=== PATIENT | female | born 1945 | race Caucasian/White ===

== ENCOUNTER 2022-07-10 10:36 | Inpatient (IN) | payer MEDICARE, BC ==
[~2022-07-10] VITALS: Ht 152.4 cm; Wt 49.4 kg
[2022-07-10 11:07] LABS: Basophils # (auto) 0.1 10 ^3/uL (0-0.2); Basophils % (auto) 0.8 % (0.0-2.0); Eosinophils # (auto) 0.3 10 ^3/uL (0-0.8); Eosinophils % (auto) 2.7 % (0.0-7.0); Hemoglobin 12.7 g/dL (12.2-16.2); Lymphocytes # (auto) 1.8 10 ^3/uL (0.4-5.4); Lymphocytes % (auto) 15.9 % (10.0-50.0); Mean Corpuscular Hemoglobin 30.6 pg (28.0-32.0); Mean Corpuscular Hgb Conc. 33.5 g/dL (32.0-36.0); Mean Corpuscular Volume 91.4 fL (80.0-100.0); Monocytes # (auto) 1.1 10 ^3/uL (0-1.3); Monocytes % (auto) 10.1 % (0.0-12.0); Neutrophils # (auto) 7.8 10 ^3/uL (1.6-8.6); Neutrophils % (auto) 70.5 % (37.0-80.0); Nucleated Red Blood Cells % 0.1 %; Red Blood Cells 4.16 10^6/uL (4.0-5.20); Red Cell Distribution Width 13.7 % (11.8-14.3)
[2022-07-10 11:31] LABS: Albumin 3.5 g/dL (3.4-5.0)
[2022-07-10 11:35] LABS: BUN/Creatinine Ratio 10.4 (10.0-20.0); Bilirubin, Total 0.9 mg/dL (0.2-1.0); Total Protein 6.8 g/dL (6.4-8.2)
[2022-07-10 11:39] LABS: Calcium 13.9 mg/dL (8.5-10.1); Potassium 2.7 mmol/L (3.5-5.1)
[2022-07-10] MEDS ORDERED: SODIUM CHLORIDE 0.9% 1,000 ML IV ONE (12:00)
[2022-07-10] MEDS ORDERED: POTASSIUM EFFERVESENT TAB 25 MEQ PO ONE (12:00)
[2022-07-10 12:11] LABS: Magnesium 1.6 mg/dL (1.6-2.6); Phosphorus 3.1 mg/dL (2.5-4.90)
[2022-07-10] MEDS ORDERED: DEXTROSE (50%) 50ML SYRG IV PRN (15:15)
[2022-07-10] MEDS ORDERED: ZOLEDRONIC ACID 4 MG in SODIUM CHL 0.9% 100 ML IV ONE (16:30)
[2022-07-10] MEDS: POTASSIUM CHL 20 Meq TABLET PO ONE ×2 (16:39→16:53)
[2022-07-10] MEDS: ENOXAPARIN SOD 60 MG/0.6 ML SYRINGE SC SCH (16:55)
[2022-07-10] MEDS: InsuLIN REG 1unit/0.01ml Soln (100units/ml) SC SCH ×2 (16:55→21:31)
[2022-07-10] MEDS: ACCU-CHEK COMFORT CURVE STRIP VI SCH ×2 (16:55→21:31)
[2022-07-10] MEDS: POTASSIUM CHL 20MEQ/100ML 100 ML IV SCH ×2 (17:42→21:23)
[2022-07-10] MEDS: ATORVASTATIN 20 MG TAB PO SCH (21:23)
[2022-07-10 21:26] LABS: Urine Bacteria NONE SEEN /hpf (None Seen); Urine Blood Negative /uL (Negative); Urine Specific Gravity 1.007 (1.001-1.035); Urine WBC 4 /hpf (0 - 5)
[2022-07-10 21:31] LABS: Creatinine, Urine 15 mg/dL (30.0-125.0); Sodium Urine 121 mmol/L (40-220)
[2022-07-10] MEDS ORDERED: hydrALAZINE HCL 20 MG/ML VL IV PRN (22:15)
[2022-07-10 23:33] VITALS: BP 145/73
[2022-07-11 01:02] VITALS: BP 145/73
[2022-07-11] MEDS ORDERED: ATOR10TA PO (01:20)
[2022-07-11] MEDS ORDERED: DOCU100T15 PO (01:20)
[2022-07-11] MEDS ORDERED: CLOP75TA70 PO (01:20)
[2022-07-11] MEDS ORDERED: ALEN70TA74 PO (01:20)
[2022-07-11] MEDS ORDERED: COBA1000 SL (01:20)
[2022-07-11] MEDS ORDERED: CALC500C65 PO (01:20)
[2022-07-11] MEDS ORDERED: ASPI81CH74 PO (01:20)
[2022-07-11] MEDS ORDERED: AML5T PO (01:20)
[2022-07-11] MEDS ORDERED: FOLI-119 PO (01:22)
[2022-07-11] MEDS ORDERED: MEMA1TAB3 PO (01:22)
[2022-07-11] MEDS ORDERED: CHOL20007 OR (01:22)
[2022-07-11] MEDS ORDERED: QUET100T47 PO (01:22)
[2022-07-11 05:00] VITALS: BP 101/48
[2022-07-11] MEDS: ACCU-CHEK COMFORT CURVE STRIP VI SCH ×4 (06:01→21:28)
[2022-07-11] MEDS: InsuLIN REG 1unit/0.01ml Soln (100units/ml) SC SCH ×4 (06:03→21:37)
[2022-07-11] MEDS ORDERED: ENOXAPARIN SOD 40 MG/0.4 ML SYRINGE SC SCH (10:00)
[2022-07-11] MEDS ORDERED: FUROSEMIDE 20 MG/2 ML VIAL IV SCH (10:00)
[2022-07-11 11:46] LABS: Basophils # (auto) 0.1 10 ^3/uL (0-0.2); Basophils % (auto) 0.9 % (0.0-2.0); Eosinophils # (auto) 0.5 10 ^3/uL (0-0.8); Hematocrit 36.4 % (36.0-46.0); Hemoglobin 12.2 g/dL (12.2-16.2); Lymphocytes # (auto) 2.4 10 ^3/uL (0.4-5.4); Lymphocytes % (auto) 25.7 % (10.0-50.0); Mean Corpuscular Hemoglobin 30.5 pg (28.0-32.0); Mean Corpuscular Hgb Conc. 33.5 g/dL (32.0-36.0); Mean Corpuscular Volume 91.1 fL (80.0-100.0); Monocytes # (auto) 0.7 10 ^3/uL (0-1.3); Monocytes % (auto) 7.5 % (0.0-12.0); Neutrophils # (auto) 5.8 10 ^3/uL (1.6-8.6); Neutrophils % (auto) 60.9 % (37.0-80.0); Nucleated Red Blood Cells % 0.1 %; Red Cell Distribution Width 13.5 % (11.8-14.3); White Blood Cell 9.6 10^3/uL (4.4-10.8)
[2022-07-11 12:15] LABS: Albumin 3.3 g/dL (3.4-5.0); Calcium 12.5 mg/dL (8.5-10.1); Magnesium 1.5 mg/dL (1.6-2.6); Potassium 3.3 mmol/L (3.5-5.1)
[2022-07-11 12:19] LABS: BUN/Creatinine Ratio 9.8 (10.0-20.0); Bilirubin, Total 1.2 mg/dL (0.2-1.0); Phosphorus 1.6 mg/dL (2.5-4.90); Total Protein 6.4 g/dL (6.4-8.2)
[2022-07-11] MEDS ORDERED: POTASSIUM PHOSPHATE 26.4 MEQ in SODIUM CHL 0.9% 100 ML IV ONE (13:00)
[2022-07-11] MEDS: SODIUM CHLORIDE 0.9% 1,000 ML IV SCH (16:22)
[2022-07-11] MEDS: MAGNESIUM SULFATE 1GM/100ML 100 ML IV SCH ×3 (16:22→20:34)
[2022-07-11] MEDS: ENOXAPARIN SOD 60 MG/0.6 ML SYRINGE SC SCH (18:53)
[2022-07-11] MEDS ORDERED: MAGNESIUM SULFATE 1GM/100ML 100 ML IV SCH (20:30)
[2022-07-11] MEDS: ATORVASTATIN 20 MG TAB PO SCH (21:28)
[2022-07-11] MEDS ORDERED: LORazepam 2MG/ML-1ML VIAL IV PRN (21:30)
[2022-07-11] MEDS ORDERED: HALOPERIDOL LACTATE 5 MG/ML INJ VIAL IM PRN (21:30)
[2022-07-11] MEDS: MEMANTINE HCL 5 MG TAB PO SCH (21:39)
[2022-07-11 22:00] VITALS: BP 148/65
[2022-07-12] MEDS: SODIUM CHLORIDE 0.9% 1,000 ML IV SCH ×3 (04:27→22:35)
[2022-07-12 05:00] VITALS: BP 155/76
[2022-07-12] MEDS: ACCU-CHEK COMFORT CURVE STRIP VI SCH ×4 (05:46→22:21)
[2022-07-12] MEDS: InsuLIN REG 1unit/0.01ml Soln (100units/ml) SC SCH ×4 (05:52→22:00)
[2022-07-12 07:11] LABS: Basophils # (auto) 0.1 10 ^3/uL (0-0.2); Basophils % (auto) 0.6 % (0.0-2.0); Eosinophils # (auto) 0.5 10 ^3/uL (0-0.8); Eosinophils % (auto) 5.8 % (0.0-7.0); Hemoglobin 11.6 g/dL (12.2-16.2); Lymphocytes # (auto) 3.1 10 ^3/uL (0.4-5.4); Lymphocytes % (auto) 34.8 % (10.0-50.0); Mean Corpuscular Hemoglobin 31.1 pg (28.0-32.0); Mean Corpuscular Volume 91.4 fL (80.0-100.0); Monocytes # (auto) 0.9 10 ^3/uL (0-1.3); Neutrophils # (auto) 4.3 10 ^3/uL (1.6-8.6); Neutrophils % (auto) 48.8 % (37.0-80.0); Nucleated Red Blood Cells % 0.1 %; Red Blood Cells 3.72 10^6/uL (4.0-5.20); Red Cell Distribution Width 13.5 % (11.8-14.3); White Blood Cell 8.8 10^3/uL (4.4-10.8)
[2022-07-12 07:27] LABS: Calcium 10.7 mg/dL (8.5-10.1)
[2022-07-12 07:33] LABS: Albumin 2.8 g/dL (3.4-5.0); BUN/Creatinine Ratio 11.2 (10.0-20.0); Bilirubin, Total 0.8 mg/dL (0.2-1.0); Magnesium 2.5 mg/dL (1.6-2.6); Phosphorus 2.8 mg/dL (2.5-4.90); Total Protein 5.5 g/dL (6.4-8.2)
[2022-07-12 07:36] LABS: Potassium 2.9 mmol/L (3.5-5.1)
[2022-07-12] MEDS ORDERED: POTASSIUM EFFERVESENT TAB 25 MEQ PO ONE (08:15)
[2022-07-12 09:00] VITALS: BP 141/69
[2022-07-12] MEDS ORDERED: ZOLEDRONIC ACID 4 MG in SODIUM CHL 0.9% 100 ML IV ONE (09:00)
[2022-07-12] MEDS ORDERED: POTASSIUM CHL 20 Meq TABLET PO ONE (09:00)
[2022-07-12] MEDS: MEMANTINE HCL 5 MG TAB PO SCH ×2 (10:04→22:21)
[2022-07-12] MEDS ORDERED: GADOTERATE MEG 10 MMOL/20ml INJ (0.5MMOL/ml) IV ONE (12:09)
[2022-07-12 13:00] VITALS: BP 156/73
[2022-07-12 17:00] VITALS: BP 138/82
[2022-07-12] MEDS: ENOXAPARIN SOD 60 MG/0.6 ML SYRINGE SC SCH (19:28)
[2022-07-12 22:00] VITALS: BP 152/76
[2022-07-12] MEDS: ATORVASTATIN 20 MG TAB PO SCH (22:21)
[2022-07-13 05:00] VITALS: BP 133/76
[2022-07-13] MEDS: ACCU-CHEK COMFORT CURVE STRIP VI SCH ×4 (06:10→22:10)
[2022-07-13] MEDS: InsuLIN REG 1unit/0.01ml Soln (100units/ml) SC SCH ×4 (06:11→22:00)
[2022-07-13] MEDS: MEMANTINE HCL 5 MG TAB PO SCH ×2 (10:18→22:07)
[2022-07-13] MEDS ORDERED: HALOPERIDOL LACTATE 5 MG/ML INJ VIAL IM PRN (12:30)
[2022-07-13 13:00] VITALS: BP 118/78
[2022-07-13 14:02] LABS: Basophils # (auto) 0.1 10 ^3/uL (0-0.2); Basophils % (auto) 1.6 % (0.0-2.0); Eosinophils # (auto) 0.4 10 ^3/uL (0-0.8); Eosinophils % (auto) 4.8 % (0.0-7.0); Hematocrit 36.3 % (36.0-46.0); Hemoglobin 12.4 g/dL (12.2-16.2); Lymphocytes # (auto) 1.7 10 ^3/uL (0.4-5.4); Lymphocytes % (auto) 20.8 % (10.0-50.0); Mean Corpuscular Hemoglobin 31.1 pg (28.0-32.0); Mean Corpuscular Hgb Conc. 34.1 g/dL (32.0-36.0); Mean Corpuscular Volume 91.2 fL (80.0-100.0); Monocytes # (auto) 0.5 10 ^3/uL (0-1.3); Monocytes % (auto) 6.1 % (0.0-12.0); Neutrophils # (auto) 5.5 10 ^3/uL (1.6-8.6); Neutrophils % (auto) 66.7 % (37.0-80.0); Nucleated Red Blood Cells % 0.1 %; Red Blood Cells 3.98 10^6/uL (4.0-5.20); Red Cell Distribution Width 13.9 % (11.8-14.3); White Blood Cell 8.3 10^3/uL (4.4-10.8)
[2022-07-13 14:10] LABS: BUN/Creatinine Ratio 10.9 (10.0-20.0); Calcium 9.5 mg/dL (8.5-10.1); Magnesium 1.9 mg/dL (1.6-2.6); Potassium 3.3 mmol/L (3.5-5.1)
[2022-07-13 17:00] VITALS: BP 178/92
[2022-07-13] MEDS: ENOXAPARIN SOD 60 MG/0.6 ML SYRINGE SC SCH (17:51)
[2022-07-13] MEDS: SODIUM CHLORIDE 0.9% 1,000 ML IV SCH (18:18)
[2022-07-13 22:00] VITALS: BP 138/74
[2022-07-13] MEDS: ATORVASTATIN 20 MG TAB PO SCH (22:07)
[2022-07-14 05:00] VITALS: BP 113/72
[2022-07-14] MEDS: InsuLIN REG 1unit/0.01ml Soln (100units/ml) SC SCH ×4 (06:30→21:15)
[2022-07-14] MEDS: ACCU-CHEK COMFORT CURVE STRIP VI SCH ×4 (06:31→21:16)
[2022-07-14] MEDS: SODIUM CHLORIDE 0.9% 1,000 ML IV SCH ×2 (07:40→09:26)
[2022-07-14 08:00] VITALS: BP 133/89
[2022-07-14 08:36] VITALS: BP 133/89
[2022-07-14] MEDS ORDERED: POTASSIUM CHL 20 Meq TABLET PO ONE (08:45)
[2022-07-14] MEDS: MEMANTINE HCL 5 MG TAB PO SCH ×2 (09:24→21:11)
[2022-07-14] MEDS: MAGNESIUM OXIDE 400 MG TAB PO SCH (11:20)
[2022-07-14 13:00] VITALS: BP 132/84
[2022-07-14 16:41] VITALS: BP 150/80
[2022-07-14] MEDS: ENOXAPARIN SOD 60 MG/0.6 ML SYRINGE SC SCH (16:41)
[2022-07-14] MEDS: ATORVASTATIN 20 MG TAB PO SCH (21:11)
[2022-07-14 22:15] VITALS: BP 155/82
[2022-07-15 05:00] VITALS: BP 164/77
[2022-07-15] MEDS: InsuLIN REG 1unit/0.01ml Soln (100units/ml) SC SCH ×3 (07:00→16:50)
[2022-07-15] MEDS: ACCU-CHEK COMFORT CURVE STRIP VI SCH ×3 (07:37→16:51)
[2022-07-15 08:00] VITALS: BP 157/83
[2022-07-15] MEDS: SODIUM CHLORIDE 0.9% 1,000 ML IV SCH (11:10)
[2022-07-15] MEDS: MAGNESIUM OXIDE 400 MG TAB PO SCH (11:10)
[2022-07-15] MEDS: MEMANTINE HCL 5 MG TAB PO SCH (11:10)
[2022-07-15 12:30] VITALS: BP 157/83
[2022-07-15 13:57] LABS: Potassium 3.6 mmol/L (3.5-5.1)
[2022-07-15 13:59] LABS: BUN/Creatinine Ratio 10.5 (10.0-20.0)
[2022-07-15 15:09] VITALS: BP 157/83
[2022-07-15 16:54] VITALS: BP 109/61
[2022-07-16 08:06] LABS: Immunoglobulin G, Serum 763 mg/dL (586-1602)
== END 2022-07-15 17:25 | disposition hospice, home (50) | DRG 70 ==
LOC: EDBD 10:36 → ER 10:36 → TELE 15:49 → ER 22:47 → TELE-WESTW 22:47 → WEST WING 07-15 04:07
PROVIDERS: ADMIT Nurse Practitioner Family; ATTEND Internal Medicine
PROC: 4A00X4Z Measurement of Central Nervous Electrical Activity, External Approach (ICD-10-PCS; principal; 2022-07-12)
DX: G93.41 Metabolic encephalopathy (principal); I50.31 Acute diastolic (congestive) heart failure; N17.0 Acute kidney failure with tubular necrosis; I13.0 Hypertensive heart and chronic kidney disease with heart failure and stage 1 through stage 4 chronic kidney disease, or unspecified chronic kidney disease; G93.1 Anoxic brain damage, not elsewhere classified; J98.11 Atelectasis; N18.9 Chronic kidney disease, unspecified; Z66 Do not resuscitate; E83.52 Hypercalcemia; E87.6 Hypokalemia; D72.829 Elevated white blood cell count, unspecified; R79.89 Other specified abnormal findings of blood chemistry; E78.5 Hyperlipidemia, unspecified; I49.3 Ventricular premature depolarization; E83.39 Other disorders of phosphorus metabolism; J44.9 Chronic obstructive pulmonary disease, unspecified; E86.9 Volume depletion, unspecified; R19.00 Intra-abdominal and pelvic swelling, mass and lump, unspecified site; Z79.899 Other long term (current) drug therapy; Z82.0 Family history of epilepsy and other diseases of the nervous system
CPT/HCPCS: 36415; 36600; 70450; 70551; 71045; 71250; 73502; 74176; 76856; 78582; 80048; 80053; 81001; 82105; 82140; 82378; 82570; 82607; 82784; 82805; 82962; 83036; 83735; 83880; 83970; 84100; 84132; 84155; 84165; 84300; 84443; 84484; 85025; 85379; 86300; 86301; 86304; 86334; 93005; 93306; 95819; 96361; 96365; 97116; 97163; 97530; G0378; J1815; J3480; J3489